=== PATIENT | male | born 1980 | race Caucasian/White ===

== ENCOUNTER 2018-05-07 00:56 | Emergency (ER) | payer SELFPAY ==
[2018-05-07] MEDS ORDERED: KETOROLAC TROMETHAMINE 60 MG/2 ML VIAL IM ONE (01:04)
[2018-05-07] MEDS ORDERED: oxyCODONE/ACETAMINOPHEN 5/325 TABLET PO ONE (01:05)
--- NOTE | 2018-05-07 01:06 | ED Physician Documentation ---
General Adult - HISTORIAN Historian: patient - HPI Stated Complaint: pain s/p hand surgery Chief Complaint: General Adult Onset: hours Timing: still present Severity: moderate Further Comments: yes (Pt is a 37 yo male who had ortho surgery earlier this evening under conscious sedation at [facility] ER. Pt brings documents and prescriptions he received there. Pt had a pin placed to repair a R ring finger dislocation. He was rx'd percocet; when he got home to [place], he found that the pharmacies were closed. Pain has been increasing through the night. Pt is here for pain control.) - ROS CONST: no problems EYES/ENT: none CVS/RESP: none GI/: none MS/SKIN/LYMPH: other (ortho surgery R ring finger several hours ago) - PAST HX Past History: other (anxiety) Surgeries/Procedures: other (ortho surg) - SOCIAL HX Smoking History: cigarettes - FAMILY HX Family History: No - REVIEWED ASSESSMENTS Nursing Assessment Reviewed: Yes Vitals Reviewed: Yes Progress - Progress Progress: Toradol 60 mg IM Percocet (5/325) 4 tabs --> home. Take one or two every 4 to 6 hrs for moderate to severe pain. Pt may fill his earlier rx's in am. General Adult Physical Exam - PHYSICAL EXAM GENERAL APPEARANCE: moderate distress NECK: normal inspection, supple RESPIRATORY: no resp distress, chest non-tender, breath sounds normal CVS: reg rate & rhythm, heart sounds normal BACK: normal inspection SKIN: warm/dry, normal color EXTREMITIES: other (R hand cast/dressing s/p ortho surg earlier this evening.) NEURO: oriented X3, motor nml, sensation nml Discharge Clincal Impression: pain control s/p hand surgery Referrals: Primary Doctor,No [Primary Care Provider] - 2 Days Condition: Stable Disposition: HOME, SELF-CARE Decision to Admit: NO Decision Time: 01:13
[2018-05-07 01:11] VITALS: BP 159/119
== END 2018-05-07 01:45 | disposition home or self-care (01) ==
LOC: ED 00:56
DX: S63.254D Unspecified dislocation of right ring finger, subsequent encounter (principal); Z48.89 Encounter for other specified surgical aftercare; M79.641 Pain in right hand; X58.XXXD Exposure to other specified factors, subsequent encounter; Y92.9 Unspecified place or not applicable; Y93.9 Activity, unspecified; Y99.9 Unspecified external cause status
CPT/HCPCS: A9270; J1885; 96372; 99283

== ENCOUNTER 2018-11-25 19:35 | Emergency (ER) | payer SELFPAY ==
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
[2018-11-25 20:27] LABS: BASOPHILS % 0.7 (0.0-1.5); EOSINOPHILS % 1.9 % (0.0-6.8); MEAN CORPUSCULAR HEMOGLOBIN 31.1 pg (28.0-34.0); MONOCYTES % 6.2 % (0.0-11.0); NEUTROPHILS # 7.7 # k/uL (1.4-7.7)
[2018-11-25 20:44] LABS: eGFR (Non-African) > 60
[2018-11-25] MEDS ORDERED: CYCLOBENZAPRINE HCL 10 MG TABLET PO ONE (21:10)
[2018-11-25] MEDS ORDERED: oxyCODONE/ACETAMINOPHEN 5/325 TABLET PO ONE (21:10)
[2018-11-25] MEDS ORDERED: CYCLOBENZAPRINE HCL 5 MG TABLET ONE (21:17)
[2018-11-25 21:32] VITALS: BP 117/81
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
== END 2018-11-25 21:31 | disposition home or self-care (01) ==
LOC: ED 19:35
DX: Z04.1 Encounter for examination and observation following transport accident (principal); R10.12 Left upper quadrant pain; R10.32 Left lower quadrant pain; V49.9XXA Car occupant (driver) (passenger) injured in unspecified traffic accident, initial encounter; Y93.89 Activity, other specified; Y92.9 Unspecified place or not applicable
CPT/HCPCS: 36415; 71250; 74176; 80053; 85025; 99283; 99284; A9270; S1016